=== PATIENT | female | born 1975 | race American Indian/Alaskan Native ===

== ENCOUNTER 2020-08-18 10:02 | Outpatient (CLI) | payer BC ==
--- NOTE | 2020-08-18 12:25 | Vascular Lab Report ---
DUPLEX DOPPLER LOWER EXTREMITY VEINS, BILATERAL INDICATION / CLINICAL INFORMATION: RIGHT THIGH PAIN/BACK PAIN. Lower extremity pain and swelling. TECHNIQUE: Duplex doppler imaging was performed through the veins of both lower extremities using venous ta kimberly and other maneuvers. COMPARISON: None available. FINDINGS: Right Common Femoral vein: Negative. Right Femoral vein: Negative. Right Popliteal vein: Negative. Right Calf veins: Negative. Left Common Femoral vein: Negative. Left Femoral vein: Negative. Left Popliteal vein: Negative. Left Calf veins: Negative. Additional findings: None. IMPRESSION: 1. No sonographic evidence for DVT in either lower extremity. Signer Name: Brent Woods MD Signed: 08/18/2020 12:20 PM Workstation Name: [id number]
== END 2020-08-18 10:03 | disposition home or self-care (01) ==
LOC: US 10:02
PROVIDERS: ATTEND Internal Medicine
DX: M79.651 Pain in right thigh (principal); M54.5 Low back pain
CPT/HCPCS: 93970